=== PATIENT | male | born 1985 | race Caucasian/White ===

== ENCOUNTER 2020-07-12 12:05 | Emergency (ER) | payer OTHER ==
--- OUTSIDE RECORDS SUMMARY | 2020-07-12 12:16 | XMS REPORT | Summary of Care ---
:1985 Author Organization [facility] Address [address] [place] [id number] Care Team Providers Name Role Phone Pcp, Does Not Have A Primary Care Provider Reason for Visit Reason Comments Insect Bite pt thinks it a brown reclus bite on right ankle. Yesterday looked like an ant bite, this morning was b igger. Pt states he tried popping it and cleaning it out. States it d idnt help, the bite doubled in size since this morning. Encounter Details Date Type Department Care Team Description 06/01/2020 Urgent Care [facility] Judah Skelton FNP [address] [id number] Spider bite wound, undetermined intent, initial encounter (Primary Dx); [facility] Provider, [facility] [address] [place] [id number] Allergies No Known Allergiesdocumented as of this encounter (statuses as of 06/01/2020) Medications Medication Sig Dispensed Refills Start Date End Date Status ALPRAZolam 0.5 mg 0 05/15/2020 A ctive tablet atorvastatin 10 mg 0 05/23/2020 Active tablet levothyroxine 75 0 05/22/2020 Ac tive mcg tablet amoxicillin-clavul Take 1 14 tablet 0 06/01/2020 Active anate (AUGMENTIN) tablet by 0 875-125 mg per mouth 2 tabletIndications: (two) times Spider bite wound, daily for 7 undetermined days. intent, initial encounter cephALEXin Take 1 28 capsule 0 06/01/2020 Discont inued (KEFLEX) 500 mg capsule by 0 (Er ror) capsuleIndications mouth 4 : Spider bite (four) times wound, daily for 7 undetermined days. intent, initial encounter documented as of this encounter (statuses as of 06/01/2020) Active Problems No known active problemsdocumented as of this encounter (statuses as of 06/01/2020) Social History Tobacco Use Types Packs/Day Years Used Date Light Tobacco Smoker Smokeless Tobacco: Never Used Tobacco Cessation: Ready to Quit: No; Co unseling Given: Yes Sex Assigned at Date Recorded Not on file Job Start Date Occupation Industry Not on file Not on file Not on file Travel History Travel Start Travel End No recent travel history available. COVID-19 Exposure Response Date Recorded In the last month, have you been in contact with No / Unsure 06/01/2020 3:50 PM CDT someone who was confirmed or suspected to have Coronavirus / COVID-19? documented as of this encounter Last Filed Vital Signs Vital Sign Reading Time Taken Comments Blood Pressure 123/79 06/01/2020 3:55 PM CDT Pulse 60 06/01/2020 3:55 PM CDT Temperature 37 C (98.6 F) 06/01/2020 3:55 PM CDT Respiratory Rate 18 06/01/2020 3:55 PM CDT Oxygen Saturation 97% 06/01/2020 3:55 PM CDT Inhaled Oxygen Concentration - - Weight 94.6 kg (208 lb 9.6 oz) 06/01/2020 3:55 PM CDT Height 175.3 cm (5' 9") 06/01/2020 3:55 PM CDT Body Mass Index 30.8 06/01/2020 3:55 PM CDT documented in this encounter Patient Instructions Patient InstructionsMita Skelton FNP - 06/01/2020 3:40 PM CDT Patient Education Brown Recluse Spider Bite Most spiders are harmless to people. But there are 2 spiders in the [place] that can cause harm: the black and the brown recluse. Brown recluse spidersmay be light or dark brown. They are inch to inch long, and have long, thin, legs. Some have a fiddle-shaped vega on their back. They are most often found [facility] and [place].They live in places such asclosets, attics, basements, porches, alyson, and woodpiles. A brown recluse spider bite may be painless at first. Or it may burn slightly like a bee sting. A small red vega may form at the site. Then small blisters may appear. In 2 to 8 hours,the area may become painful, swollen, and itchy. Other symptoms can include a general feeling of discomfort (malaise), fever,joint pain, nausea, and vomiting. In most cases, the bite site heals on its own in a week. But in some cases, the skin at the bite site may break down. (For instance, the skin may turn black and sink down as the tissue below dies.) This can cause an open wound called anulcer to form. It maytake a few weeks to a few months to heal. In rare cases, a brown recluse spider bite leads to more se rious problems. These can include muscle damage, kidney failure, problems with blood clotting, and coma. The bite site will be cleaned. Medicines may be given to relieve pain, if needed. Antibiotics may also be given to treat infection. A tetanus shot may be given. If an ulcer forms, skin grafting may be needed later to repair severe damage to the skin. But most bites heal without scarring. Home care You may use acetaminophen or ibuprofen to relieve pain, unless another pain medicine was prescribed.Talk with your healthcare provider before using these medicines if you have chronic liver or kidney disease or ever had a stomach ulcer or GI bleeding. If you were prescribed antibiotics, take them exactly as directed. Also be sure to complete the medicines. Care for the bite site as directed by your healthcare provider. This may involve cleaning the wound at least once a day with soap and water. To help ease pain and swelling, apply cold packs to the bite site as directed. You can use a coolwet washcloth. Or you can make a cold pack by filling a plastic bag that seals at the top with ice cubes and wrapping it with a thin towel. Don't apply ice directly on the skin. If you were bitten on the arm or leg, keep the body part raised (elevated). Swelling may worsen in the down position. Check the bite site daily for signs of infection (see below). Follow-up care Follow up with your healthcare provider, or as advised. When to get medical advice Call your healthcare provider right away if any of these occur: Fever of 100.4F (38C) or higher, or as directed by your provider Pain worsens and is not relieved with medicine Signs of infection at the bite site such as increased redness orstreaking,swelling, or foul-smelling drainage Bite site becomes black or blue Bite site wont heal or grows larger [employer] last reviewed this educational content on 08/10/201919992327-7699 [employer]. [address] [place] [address]. All rights reserved. This information is not intended as a substitute for professional medical care. Always follow your healthcare professional's instructions. documented in this encounter Progress Notes Mita Skelton FNP - 06/01/2020 3:40 PM CDT Cc: Chief Complaint Patient presents with Insect Bite pt thinks it a brown reclus bite on right ankle. Yesterday looked like an ant bite, this morning was bigger. Pt states he tried popping it and cleaning it out. States it didnt help, the bite doubled in size since this morning. Robin Saxena is a 34 year old male. Patient is here with spider bite, tdap done 2 years ago. The bite has formed a pustule that expelledthis morning with some relief. He is unsure what kind of spider bit him. Insect Bite Location: Leg Leg rash location: R leg Quality: draining and redness Severity: Mild Onset quality: Gradual Duration: 2 days Timing: Constant Progression: Improving Chronicity: New Context: insect bite/sting Relieved by: Nothing Ineffective treatments: None tried Associated symptoms: no abdominal pain, no diarrhea, no fatigue, no fever, no headaches, no hoarse voice, no induration, no joint pain, no myalgias, no nausea, no periorbital edema, no shortness of breath, no sore throat, no throat swelling, no tongue swelling, no URI, not vomiting and not wheezing Allergies Robin has No Known Allergies. Medications Outpatient Medications Prior to Visit Medication Sig Dispense Refill ALPRAZolam 0.5 mg tablet atorvastatin 10 mg tablet levothyroxine 75 mcg tablet No facility-administered medications prior to visit. Histories No past medical history on file. No past surgical history on file. Social History Socioeconomic History Marital status: Spouse name: Not on file Number of children: Not on file Years of education: Not on file Highest education level: Not on file Occupational History Not on file Social Needs Financial resource strain: Not on file Food insecurity: Worry: Not on file Inability: Not on file Transportation needs: Medical: Not on file Non-medical: Not on file Tobacco Use Smoking status: Light Tobacco Smoker Smokeless tobacco: Never Used Substance and Sexual Activity Alcohol use: Not on file Drug use: Not on file Sexual activity: Not on file Lifestyle Physical activity: Days per week: Not on file Minutes per session: Not on file Stress: Not on file Relationships Social connections: Talks on phone: Not on file Gets together: Not on file Attends church service: Not on file Active member of club or organization: Not on file Attends meetings of clubs or organizations: Not on file Relationship status: Not on file Intimate partner violence: Fear of current or ex partner: Not on file Emotionally abused: Not on file Physically abused: Not on file Forced sexual activity: Not on file Other Topics Concern Not on file Social History Narrative Not on file No family history on file. Review of Systems Constitutional: Negative. Negative for chills, fatigue and fever. HENT: Negative for hoarse voice and sore throat. Respiratory: Negative. Negative for cough, chest tightness, shortness of breath and wheezing. Cardiovascular: Negative. Negative for chest pain and palpitations. Gastrointestinal: Negative. Negative for abdominal pain, diarrhea, nausea and vomiting. Musculoskeletal: Negative for arthralgias and myalgias. Skin: Positive for wound. Neurological: Negative. Negative for syncope, weakness, light-headedness and headaches. Psychiatric/Behavioral: Negative. Endocrine: Endocrine negative Vital Signs BP 123/79 | Pulse 60 | Temp 37 C (98.6 F) | Resp 18 | Ht 5' 9" (1.753 m) | Wt 208 lb 9.6 oz(94.6 kg) | SpO2 97% | BMI 30.80 kg/m Physical Exam Constitutional: He is oriented to person, place, and time. He appears well- developed. No distress. Cardiovascular: Normal rate, regular rhythm, normal heart sounds and intact distal pulses. Exam reveals no gallop and no friction rub. No murmur heard. Pulmonary/Chest: Effort normal and breath sounds normal. No stridor. No respiratory distress. He hasno wheezes. He has no rales. He exhibits no tenderness. Abdominal: Soft. Bowel sounds are normal. Neurological: He is alert and oriented to person, place, and time. Skin: Skin is warm and dry. Capillary refill takes less than 2 seconds. Rash noted. Rash is pustular. Psychiatric: He has a normal mood and affect. Nursing note and vitals reviewed. Assessment/Plan 1. Spider bite: Augmentin given, clinical references for Homecare instructions reviewed and copy given. RTC if no improvement worse or new onset of symptoms or go to the ER. Plan of care, desired health behaviors, goals, and medication discussed with patient. Education resources provided and reviewed with AVS. Patient/guardian/family verbalized understanding & agrees to plan of care. This visit did not involve counseling and coordination that comprised more than 50% of the visit time. If applicable, the [place] [employer] database was accessed to review any controlled substance prescription claims data. The [employer] prescription claims data in [employer] was reviewed to assess patient compliance with the medication treatment plan. Tammy Oro MA - 06/01/2020 3:40 PM CDT Robin Saxena is a 34 year old male Chief Complaint Patient presents with Insect Bite pt thinks it a brown reclus bite on right ankle. Yesterday looked like an ant bite, this morning was bigger. Pt states he tried popping it and cleaning it out. States it didnt help, the bite doubled in size since this morning. Vitals: 06/01/20 1555 BP: 123/79 Pulse: 60 Resp: 18 Temp: 37 C (98.6 F) SpO2: 97% Weight: 208 lb 9.6 oz (94.6 kg) Height: 5' 9" (1.753 m) [place] [id number] All Vitals taken, allergies and all medications reviewed, fall risk assessed. Pain level 3. Tammy Sloan MA 06/01/2020 3:59 PM documented in this encounter Plan of Treatment Health Maintenance Due Date Last Done Comments VARICELLA VACCINES (1 of 2 - 2-dose childhood series) 1987 PNEUMOCOCCAL 0-64 YEARS COMBINED SERIES (1 of 1 - 1992 PPSV23) DTaP,Tdap,and Td Vaccines (1 - Tdap) 1997 Depression Screening 1998 INFLUENZA VACCINE (#1) 2020 documented as of this encounter Results Not on filedocumented in this encounter Visit Diagnoses Diagnosis Spider bite wound, undetermined intent, initial encounter - Primary Bite Injury, other and unspecified, unspecifi ed site documented in this encounter documented as of this encounter
--- OUTSIDE RECORDS SUMMARY | 2020-07-12 12:16 | XMS REPORT | Continuity of Care Document ---
:1985 Author Organization [facility] t Address [address] [place] [address] Care Team Providers Name Role Phone Provider, Urgent Care Attending Clinician Unavailable Problems This patient has no known problems. Allergies, Adverse Reactions, Alerts This patient has no known allergies or adverse reactions. Medications This patient has no known medications. Procedures This patient has no known procedures. Encounters Start End Encounter Admission Attending Care Care Encounter Source Date/Time Date/Time Type Type Clinicians Facility Department ID 2020-06-01 2020-06-01 Urgent Provider, [facility] [id number] 15:43:04 16:03:04 Care [facility] [id number] [facility] [id number] Irene [id number] [address] Results This patient has no known results.
--- NOTE | 2020-07-12 12:32 | RAD REPORT ---
EXAM DESCRIPTION: CT - Head Brain Wo Cont - 07/12/2020 12:27 pm CLINICAL HISTORY: Photophobia;Headache COMPARISON: No comparisons TECHNIQUE: Axial 5 mm thick images of the head were obtained without IV contrast. All CT scans are performed using dose optimization technique as appropriate and may include automated exposure control or mA/KV adjustment according to patient size. FINDINGS: No intracranial hemorrhage, mass, edema or shift of mid-line structures. No acute infarcti on changes seen. No abnormal extra-axial fluid collections. Ventricles are normal. Mastoid air cells are clear. Trace mucosal thickening in the ethmoid air cells. No acute bony findings. IMPRESSION: No intracranial abnormality identifiable. Trace mucosal thickening in the ethmoid air cells.
[2020-07-12] MEDS ORDERED: DIPHENHYDRAMINE 50 MG/ML VIAL ONE (12:55)
[2020-07-12] MEDS ORDERED: KETOROLAC 30 MG/ML INJ ONE (12:55)
[2020-07-12] MEDS ORDERED: NA CHLORIDE 0.9% 1,000 ML ONE (12:55)
[2020-07-12] MEDS ORDERED: METOCLOPRAMIDE 10 MG/2mL INJ ONE (12:55)
--- NOTE | 2020-07-12 15:17 | ER ---
Nurse's Notes [facility] Name: Robin Saxena Age: 34 yrs Sex: Male : 1985 Arrival Date: 07/12/2020 Time: 12:11 Bed 7 Private MD: Urban Rivera T Diagnosis: Headache Presentation: 07/12 12:21 Chief complaint: Headache described as worst ever, +photosensitivity. Reports hb intermittent headaches x 2-3 weeks, has been under increased stress at work and school, stopped Xanax 2-3 weeks ago. Coronavirus screen: At this time, the client does not indicate any symptoms associated with coronavirus-19. Ebola Screen: No symptoms or risks identified at this time. Onset of symptoms was July 12, 2020. 12:21 Method Of Arrival: Ambulatory hb 12:21 Acuity: BENITO 2 hb 12:28 Initial Sepsis Screen: Does the patient meet any 2 criteria? No. Patient's initial hb sepsis screen is negative. Does the patient have a suspected source of infection? No. Patient's initial sepsis screen is negative. Risk Assessment: Do you want to hurt yourself or someone else?. Historical: - Allergies: 12:21 No Known Allergies; hb - Home Meds: 12:36 levothyroxine oral [Active]; valerian root oral oral [Active]; hb - PMHx: 12:36 Hypothyroidism; hb - PSHx: 12:36 Exploratory lap; hb - Immunization history:: Adult Immunizations up to date. - Social history:: Smoking status: Patient reports the use of cigarette tobacco products, denies chronic smoking, but will smoke occasionally. Screenin:29 Abuse screen: Denies threats or abuse. Denies injuries from another. Nutritional hb screening: No deficits noted. Tuberculosis screening: No symptoms or risk factors identified. Fall Risk None identified. Assessment: 12:15 General: PT TO CT WITH KALPANA ALANIZ. hb 12:55 General: Appears uncomfortable, Behavior is restless. Pain: Complains of pain in jr10 generalized STEELE that started last night Pain does not radiate. Pain currently is 9 out of 10 on a pain scale. Quality of pain is described as sharp, shooting, stabbing, Pain began 1 day ago. Is continuous, Alleviated by nothing. Aggravated by light Noted to be grimacing, guarding, moaning. Neuro: Level of Consciousness is awake, alert, obeys commands, Oriented to person, place, time, situation, Appropriate for age Claims Service Representative are equal bilaterally Moves all extremities. Gait is steady, Speech is normal, Facial symmetry appears normal, Pupils are PERRLA, Intact Reports blurred vision headache photophobia. Cardiovascular: No deficits noted. Denies chest pain. Respiratory: No deficits noted. Airway is patent Respiratory effort is even, unlabored, Respiratory pattern is regular, symmetrical, Denies cough, shortness of breath. GI: Reports nausea. : No deficits noted. No signs and/or symptoms were reported regarding the genitourinary system. EENT: No deficits noted. No signs and/or symptoms were reported regarding the EENT system. EENT: No deficits noted. Derm: No deficits noted. No signs and/or symptoms reported regarding the dermatologic system. Musculoskeletal: No deficits noted. No signs and/or symptoms reported regarding the musculoskeletal system. 13:33 Reassessment: Patient and/or family updated on plan of care and expected duration. Pain jr10 level reassessed. Patient is alert, oriented x 3, equal unlabored respirations, skin warm/dry/pink. Patient states feeling better. Patient states symptoms have improved. 14:37 Reassessment: Patient and/or family updated on plan of care and expected duration. Pain jr10 level reassessed. Patient is alert, oriented x 3, equal unlabored respirations, skin warm/dry/pink. Patient states symptoms have improved. Vital Signs: 12:28 BP 135 / 82; Pulse 89; Resp 16; Temp 99.1(O); Pulse Ox 98% on R/A; Weight 90.26 kg; hb Height 5 ft. 8 in. (172.72 cm); Pain 9/10; 12:59 BP 124 / 77; Pulse 81; Resp 20; Pulse Ox 97% ; Pain 9/10; jr10 13:30 BP 127 / 83; Pulse 76; Resp 20; Pulse Ox 96% on R/A; jr10 14:38 BP 106 / 60; Pulse 71; Resp 16; Pulse Ox 97% on R/A; Pain 3/10; jr10 15:33 BP 113 / 61; Pulse 81; Resp 18; Temp 99.2; Pulse Ox 100% on R/A; jr10 12:28 Body Mass Index 30.26 (90.26 kg, 172.72 cm) hb ED Course: 12:11 Patient arrived in ED. mr 12:11 Urban Rivera MD is Private Physician. mr 12:18 Mitul Diego MD is Attending Physician. kdr 12:22 Triage completed. hb 12:26 Head Brain Wo Cont CT In Process Unspecified. EDMS 12:29 Arm band placed on. hb 12:38 Chiquis Estrada, RN is Primary Nurse. jr10 12:54 Patient has correct armband on for positive identification. Bed in low position. Call jr10 light in reach. Side rails up X2. Pulse ox on. NIBP on. 12:54 No provider procedures requiring assistance completed. Inserted saline lock: 20 gauge jr10 in right hand, using aseptic technique. IV is patent, is intact, with fluids infusing freely, with good blood return, Flushed. 15:16 Urban Rivera MD is Referral Physician. kdr 15:34 IV discontinued, intact, bleeding controlled, No redness/swelling at site. Pressure jr10 dressing applied. Administered Medications: 12:57 Drug: Reglan 10 mg Route: IVP; Site: right hand; jr10 13:32 Follow up: Response: No adverse reaction; Pain is decreased jr10 12:57 Drug: Benadryl 25 mg Route: IVP; Site: right hand; jr10 13:32 Follow up: Response: No adverse reaction; Pain is decreased jr10 12:57 Drug: NS 0.9% 1000 ml Route: IV; Rate: 1 bolus; Site: right hand; jr10 14:19 Follow up: Response: No adverse reaction; IV Status: Completed infusion jr10 12:58 Drug: TORadol - Ketorolac 15 mg Route: IVP; Site: right hand; jr10 13:32 Follow up: Response: No adverse reaction; Pain is decreased jr10 Outcome: 15:17 Discharge ordered by . kdr 15:34 Discharged to home ambulatory. jr10 15:34 Condition: improved 15:34 Discharge instructions given to patient, Instructed on discharge instructions, follow up and referral plans. Demonstrated understanding of instructions, follow-up care, medications, Prescriptions given X 2. 15:34 Patient left the ED. jr10 Signatures: Dispatcher [employer] EDKS Mitul Diego MD MD kdr Rivera, Mary mr Kalpana Hernandez, RN RN hb Chiquis Estrada RN RN jr10 Corrections: (The following items were deleted from the chart) 12:31 12:21 Chief complaint: Headache described as worst ever, +photosensitivity. Reports hb intermittent headaches x 2-3 weeks. hb
--- NOTE | 2020-07-12 15:17 | EDPHYS ---
Physician Documentation [facility] Name: Robin Saxena Age: 34 yrs Sex: Male : 1985 Arrival Date: 07/12/2020 Time: 12:11 Bed 7 Private MD: Urban Rivera T ED Physician Mitul Diego HPI: 07/13 08:09 This 34 yrs old Male presents to ER via Ambulatory with complaints of kdr Headache. 08:09 The patient complains of pain to the left side of head and right side of head. The kdr patient describes the headache as aching, constant, a pressure, unrelenting. Onset: The symptoms/episode began/occurred gradually, 2 day(s) ago. Associated signs and symptoms: Pertinent positives: Photophobia Pertinent negatives: altered mental status, dizziness, fever, malaise, nausea, neck stiffness, paresthesias, rash, sinus congestion, sinus tenderness, vision changes, vision loss. Severity of symptoms: At its worst the pain was severe, incapacitating, in the emergency department the pain is unchanged. Headache History: Other The is somewhat worse than the past but is most significant for not resolving. The symptoms are alleviated by nothing. the symptoms are aggravated by nothing. The patient has not experienced similar symptoms in the past. The patient has been recently seen by a physician: The patient was sent from Dr. Rivera's office. Historical: - Allergies: 07/12 12:21 No Known Allergies; hb - Home Meds: 12:36 levothyroxine oral [Active]; valerian root oral oral [Active]; hb - PMHx: 12:36 Hypothyroidism; hb - PSHx: 12:36 Exploratory lap; hb - Immunization history:: Adult Immunizations up to date. - Social history:: Smoking status: Patient reports the use of cigarette tobacco products, denies chronic smoking, but will smoke occasionally. ROS: 07/13 08:09 Constitutional: Negative for fever, chills, and weight loss, Eyes: Negative for injury, kdr pain, redness, and discharge, ENT: Negative for injury, pain, and discharge, Neck: Negative for injury, pain, and swelling, Cardiovascular: Negative for chest pain, palpitations, and edema, Respiratory: Negative for shortness of breath, cough, wheezing, and pleuritic chest pain, Abdomen/GI: Negative for abdominal pain, nausea, vomiting, diarrhea, and constipation, Back: Negative for injury and pain, : Negative for injury, bleeding, discharge, and swelling, MS/Extremity: Negative for injury and deformity, Skin: Negative for injury, rash, and discoloration, Psych: Negative for depression, anxiety, suicide ideation, homicidal ideation, and hallucinations, Allergy/Immunology: Negative for hives, rash, and allergies, Endocrine: Negative for neck swelling, polydipsia, polyuria, polyphagia, and marked weight changes, Hematologic/Lymphatic: Negative for swollen nodes, abnormal bleeding, and unusual bruising. Neuro: Positive for headache, Negative for altered mental status, dizziness, gait disturbance, hearing loss, loss of consciousness, numbness, seizure activity, speech changes, syncope, near syncope, tingling, tinnitus, tremor, visual changes, weakness. Exam: 08:09 Constitutional: This is a well developed, well nourished patient who is awake, alert, kdr and in no acute distress. Head/Face: Normocephalic, atraumatic. Eyes: Pupils equal round and reactive to light, extra-ocular motions intact. Lids and lashes normal. Conjunctiva and sclera are non-icteric and not injected. Cornea within normal limits. Periorbital areas with no swelling, redness, or edema. ENT: Nares patent. No nasal discharge, no septal abnormalities noted. Tympanic membranes are normal and external auditory canals are clear. Oropharynx with no redness, swelling, or masses, exudates, or evidence of obstruction, uvula midline. Mucous membranes moist. Neck: Trachea midline, no thyromegaly or masses palpated, and no cervical lymphadenopathy. Supple, full range of motion without nuchal rigidity, or vertebral point tenderness. No Meningismus. Chest/axilla: Normal chest wall appearance and motion. Nontender with no deformity. No lesions are appreciated. Cardiovascular: Regular rate and rhythm with a normal S1 and S2. No gallops, murmurs, or rubs. Normal PMI, no JVD. No pulse deficits. Respiratory: Lungs have equal breath sounds bilaterally, clear to auscultation and percussion. No rales, rhonchi or wheezes noted. No increased work of breathing, no retractions or nasal flaring. Abdomen/GI: Soft, non-tender, with normal bowel sounds. No distension or tympany. No guarding or rebound. No evidence of tenderness throughout. Back: No spinal tenderness. No costovertebral tenderness. Full range of motion. Skin: Warm, dry with normal turgor. Normal color with no rashes, no lesions, and no evidence of cellulitis. MS/ Extremity: Pulses equal, no cyanosis. Neurovascular intact. Full, normal range of motion. Neuro: Awake and alert, GCS 15, oriented to person, place, time, and situation. Cranial nerves II-XII grossly intact. Motor strength 5/5 in all extremities. Sensory grossly intact. Cerebellar exam normal. Normal gait. Psych: Awake, alert, with orientation to person, place and time. Behavior, mood, and affect are within normal limits. Vital Signs: 07/12 12:28 BP 135 / 82; Pulse 89; Resp 16; Temp 99.1(O); Pulse Ox 98% on R/A; Weight 90.26 kg; hb Height 5 ft. 8 in. (172.72 cm); Pain 9/10; 12:59 BP 124 / 77; Pulse 81; Resp 20; Pulse Ox 97% ; Pain 9/10; jr10 13:30 BP 127 / 83; Pulse 76; Resp 20; Pulse Ox 96% on R/A; jr10 14:38 BP 106 / 60; Pulse 71; Resp 16; Pulse Ox 97% on R/A; Pain 3/10; jr10 15:33 BP 113 / 61; Pulse 81; Resp 18; Temp 99.2; Pulse Ox 100% on R/A; jr10 12:28 Body Mass Index 30.26 (90.26 kg, 172.72 cm) hb MDM: 15:17 Patient medically screened. kdr 07/13 08:09 Data reviewed: vital signs, nurses notes, radiologic studies. Counseling: I had a kdr detailed discussion with the patient and/or guardian regarding: the historical points, exam findings, and any diagnostic results supporting the discharge/admit diagnosis, radiology results, the need for outpatient follow up. Special discussion: I discussed with the patient/guardian in detail that at this point there is no indication for admission to the hospital. It is understood, however, that if the symptoms persist or worsen the patient needs to return immediately for re-evaluation. ED course: The patient felt much better with the interventions given and the plan for discharge and follow-up. 07/12 12:20 Order name: Head Brain Wo Cont CT; Complete Time: 12:34 hb Administered Medications: 07/12 12:57 Drug: Reglan 10 mg Route: IVP; Site: right hand; jr10 13:32 Follow up: Response: No adverse reaction; Pain is decreased jr10 12:57 Drug: Benadryl 25 mg Route: IVP; Site: right hand; jr10 13:32 Follow up: Response: No adverse reaction; Pain is decreased jr10 12:57 Drug: NS 0.9% 1000 ml Route: IV; Rate: 1 bolus; Site: right hand; jr10 14:19 Follow up: Response: No adverse reaction; IV Status: Completed infusion jr10 12:58 Drug: TORadol - Ketorolac 15 mg Route: IVP; Site: right hand; jr10 13:32 Follow up: Response: No adverse reaction; Pain is decreased [email or web address] Disposition: 07/12/20 15:17 Discharged to Home. Impression: Headache. - Condition is Stable. - Discharge Instructions: General Headache Without Cause, Migraine Headache, [id number]. - Prescriptions for ketorolac 10 mg Oral tablet - take 1 tablet by ORAL route every 4-6 hours not to exceed 40 mg in 24hrs; 12 tablet. Reglan 10 mg Oral Tablet - take 1 tablet by ORAL route every 6 hours PRN Headache; 20 tablet. - Medication Reconciliation Form, Thank You Letter form. - Follow up: Urban Rivera MD; When: 2 - 3 days; Reason: If symptoms return, Further diagnostic work-up, Recheck today's complaints, Continuance of care, Re-evaluation by your physician. - Problem is new. - Symptoms have improved. Signatures: Dispatcher [employer] EDMS Mitul Diego MD MD [facility] Kalpana Hernandez RN RN Chiquis Estrada RN RN [email or web address] Corrections: (The following items were deleted from the chart) 15:34 15:17 07/12/2020 15:17 Discharged to Home. Impression: Headache. Condition is Stable. [email or web address] Forms are Medication Reconciliation Form, Thank You Letter, Antibiotic Education, Prescription Opioid Use. Follow up: Urban Rivera; When: 2 - 3 days; Reason: If symptoms return, Further diagnostic work-up, Recheck today's complaints, Continuance of care, Re-evaluation by your physician. Problem is new. Symptoms have improved. kdr
[2020-07-14 13:07] VITALS: BP 113/61; TEMP 99.2; O2SAT 100
== END 2020-07-12 15:34 | disposition home or self-care (01) ==
LOC: ER 12:05
DX: R51 Headache (principal); E03.9 Hypothyroidism, unspecified; F17.210 Nicotine dependence, cigarettes, uncomplicated
CPT/HCPCS: 96361; 70450; 96375; 96374; 99284; J2765; J1200; J7030